=== PATIENT | male | born 1950 | race Hispanic/Latino ===

== ENCOUNTER 2016-10-07 07:57 | Inpatient (IN) | payer MEDICARE, OTHER ==
--- NOTE | 2016-10-01 11:27 | Anesthesia Consultation ---
Anesthesia Consult and Med Hx - Airway Anesthetic Teeth Evaluation: Poor ROM Head & Neck: Inadequate Mental/Hyoid Distance: Adequate Mallampati Class: Class III Intubation Access Assessment: Possibly Difficult (painful if head moved or tilted; mouth opening limited) - Pulmonary Exam CTA: Yes - Cardiac Exam Cardiac Exam: RRR - Pre-Operative Health Status ASA Pre-Surgery Classification: ASA3 Proposed Anesthetic Plan: Epidural, Spinal (Discussed spinal/epidural with adductor block; patient curently off plavix and aspirin for suregery) - Pulmonary Hx Smoking: No Hx Sleep Apnea: No (MENDY PRE SCREEN HIGH RISK) - Cardiovascular System Hx Hypertension: Yes (2001; high cholesterol; symtoms of TIA couldn't be substantiated - no defic) Hx Heart Attack/AMI: Yes (2006) Hx Percutaneous Transluminal Coronary Angioplasty (PTCA): Yes (2001x2; 2006x2) Hx Peripheral Vascular Disease: Yes (? PVD- JACK FEET) - Central Nervous System CVA: Yes (? CVA 2015 , NO DEFICIT) Hx Back Pain: Yes (NECK PAIN) - Gastrointestinal Hx Gastroesophageal Reflux Disease: Yes - Other Systems Hx Cancer: Yes (MYELOMA WITH CHEMO &RADIATION 2010)
--- NOTE | 2016-10-01 11:30 | Anesthesia Consultation ---
Anesthesia Consult and Med Hx Date of service: 10/01/16 - Airway Anesthetic Teeth Evaluation: Poor (patient teeth in very poor condition due to radiation treatments for melanoma.) ROM Head & Neck: Inadequate Mental/Hyoid Distance: Adequate Mallampati Class: Class II Intubation Access Assessment: Possibly Difficult (Painful if head rotated or moved from side to side, or tilted back) - Pulmonary Exam CTA: Yes - Cardiac Exam Cardiac Exam: RRR - Pre-Operative Health Status ASA Pre-Surgery Classification: ASA3 Proposed Anesthetic Plan: Epidural, Spinal (Discussed spinal/epidural with sedation and adductor block - currently off aspirin and plavix in preparation for surgery) - Pulmonary Hx Smoking: No Hx Sleep Apnea: No (MENDY PRE SCREEN HIGH RISK) - Cardiovascular System Hx Hypertension: Yes (2001) Hx Heart Attack/AMI: Yes (2006) Hx Percutaneous Transluminal Coronary Angioplasty (PTCA): Yes (stents done in 2001 and ) Hx Peripheral Vascular Disease: Yes (? PVD- JACK FEET) - Central Nervous System CVA: Yes (? CVA 2015 , NO DEFICIT) Hx Back Pain: Yes (NECK PAIN) - Other Systems Hx Cancer: Yes (MYELOMA WITH CHEMO &RADIATION 2010)
[~2016-10-07 07:57] MED LIST: ANCEF/STERILE WATER 2 GM/20 ML 2 GM/20 ML SYRINGE IV NR; LACTATED RINGERS 1,000 ML IV SCH; NACL 0.9% IR ONE; NEOSPORIN GU IR ONE; NEURONTIN PO NR; PEPCID IV NR; VERSED IV NR
--- NOTE | 2016-10-07 10:02 | Anesthesia Day of Surgery ---
Anesthesia Day of Surgery - Day of Surgery Patient Examined: Yes Patient H&P Reviewed: Yes Patient is NPO: Yes
[2016-10-07] MEDS ORDERED: DECADRON ONE (10:22)
[2016-10-07] MEDS ORDERED: MARCAINE 0.5% 30 ML INFILTRATI ONE (10:22)
[2016-10-07 10:32] LABS: Anion Gap 20 mmol/L; Blood Urea Nitrogen 10 mg/dL (9-20); Calcium 9.1 mg/dL (8.4-10.2); Carbon Dioxide 26 mmol/L (22-30); Chloride 88.6 mmol/L (98-107); Glucose 134 mg/dL (75-100); Potassium 4.9 mmol/L (3.6-5.0); Sodium 130 mmol/L (137-145)
[2016-10-07] MEDS: NACL 0.9% 1000 ML 1,000 ML IV SCH ×2 (10:32→11:36)
[2016-10-07 10:46] LABS: Basophils % (Auto) 1.2 % (0.0-1.8); Eosinophils % (Auto) 2.6 % (0.0-4.3); Hematocrit 35.7 % (35.5-45.6); Hemoglobin 11.8 gm/dl (11.8-15.2); Mean Corpuscular HGB Conc 33 % (32-34); Mean Corpuscular Hemoglobin 27 pg (28-32); Mean Corpuscular Volume 80 fl (84-94); Platelet Count 252 K/mm3 (140-440); Red Blood Count 4.44 M/mm3 (3.65-5.03); Red Cell Distribution Width 14.6 % (13.2-15.2); White Blood Count 6.2 K/mm3 (4.5-11.0)
[2016-10-07] MEDS ORDERED: ZOFRAN IV PRN ×2 (11:00→15:20)
[2016-10-07] MEDS ORDERED: DILAUDID IV PRN (11:00)
[2016-10-07] MEDS ORDERED: MARCAINE-EPI/PF 0.25%-1:200,000 INFILTRATI ONE (11:11)
[2016-10-07] MEDS ORDERED: TRANEXAMIC ACID 1,000 MG in NACL 0.9% 100 ML IV NR (12:00)
[2016-10-07] MEDS ORDERED: DIPRIVAN 10 MG/ML IV ONE ×5 (12:13→14:55)
[2016-10-07] MEDS ORDERED: XYLOCAINE MPF 2% ONE ×4 (13:03→13:37)
--- NOTE | 2016-10-07 13:21 | Post Anesthesia Evaluation ---
- Post Anesthesia Evaluation Patient Participated: Yes Airway Patent: Yes Stable Respiratory Function: Yes Nausea/Vomiting: No Temp > 96.8F: Yes Pain Manageable: Yes Adequeate Hydration: Yes Anesthesia Complications: No Block Receding Appropriately: Yes Patient on Ventilator: No
[2016-10-07] MEDS ORDERED: MARCAINE-EPI 0.5%-1:200,000 INFILTRATI ONE ×2 (13:26)
[2016-10-07] MEDS ORDERED: DULCOLAX PR PRN (15:20)
[2016-10-07] MEDS ORDERED: SODIUM CHLORIDE FLUSH SYRINGE 10 ML IV PRN (15:20)
[2016-10-07] MEDS ORDERED: AMBIEN PO PRN (15:20)
--- NOTE | 2016-10-07 15:55 | Post Anesthesia Evaluation ---
- Post Anesthesia Evaluation Patient Participated: Yes Airway Patent: Yes Stable Respiratory Function: Yes Nausea/Vomiting: No Temp > 96.8F: Yes Pain Manageable: Yes Adequeate Hydration: Yes Anesthesia Complications: No
[2016-10-07] MEDS ORDERED: D5NS 1,000 ML IV SCH (16:00)
[2016-10-07] MEDS ORDERED: ANCEF/NS 1 GM/50 ML 1 GM/50 ML BAG IV SCH (16:00)
[2016-10-07] MEDS: MORPHINE IV PRN (18:41)
--- NOTE | 2016-10-07 18:57 | Operative Report ---
PREOPERATIVE DIAGNOSIS: Right knee severe degenerative joint disease with marked contractures. POSTOPERATIVE DIAGNOSIS: Right knee severe degenerative joint disease with marked contractures. PROCEDURE PERFORMED: Right total knee replacement -- complex with utilizing Vital Access Triathlon system with size 6 noncemented femur, size 6 noncemented tibia, 9 mm polyethylene insert, 8-degree valgus cut with a 10 mm distal femoral resection. SURGEON: Hung Kahn M.D. ENTRY LEVEL ADMINISTRATIVE ASSISTANT: Alexy Mendez CSA ANESTHESIA: Spinal epidural. ESTIMATED BLOOD LOSS: Minimal. COMPLICATIONS: None. DESCRIPTION OF PROCEDURE: The patient underwent successful induction of anesthesia with and adductor block. Carefully, the lower extremity was meticulously prepped and draped in the usual fashion. Tourniquet inflated after exsanguination. Tranexamic acid and Ancef were pre-administered. Preoperatively, he had significant flexion contracture with marked loss of flexion as well. The standard midline incision utilizing median trivector arthrotomy. The patella was relatively well preserved. Large osteophytes resected. It was a very tight knee. Meticulous exposure was carried out so as the tibiofemoral joint. Osteophytes removed. Tricompartmentally, the tibia had marked posterior osteophytes as well rendering it posteriorly subluxed. Intramedullary corinne introduced in the femur with sequential suctioning and standard cuts made on the femur initially with 8 mm distal resection. The ACL with chronic instability, osteophytes were meticulously removed from the notch, which allowed for appropriate entry of translation of the tibia, intramedullary corinne was introduced in the tibia and standard cuts made on the tibial side as well. He had large posterior osteophytes in the femur and the tibia and these required meticulous dissection to remove. The gaps were balanced medial and laterally. He had good flexion gaps; however, in extension, it was felt to be slightly tight. Hence, an additional 2 mm resected distally. This allowed for excellent stability and full range of motion with the implants noted. The wounds were thoroughly irrigated and the implants placed. He had full range of motion is noted with excellent tracking with no-hands technique and stability. Arthrotomy was reapproximated with Ethibond sutures followed by 0 and 2-0 Vicryl for the subcutaneous tissue and Monocryl for the skin and an Ioban dressing applied. Tourniquet released prior to wound closure. No significant bleeding encountered. He was taken to recovery room in satisfactory condition having tolerated the procedure well. JOB# [id number] RAVINP/NTS
[2016-10-07] MEDS: PERCOCET 5/325 PO PRN (19:18)
[2016-10-07] MEDS ORDERED: REGLAN IV PRN (19:30)
[2016-10-07] MEDS: ANCEF/NS 1 GM/50 ML 1 GM/50 ML BAG IV SCH (20:41)
--- NOTE | 2016-10-08 01:15 | Admit Criteria Form ---
Admission Criteria Documentation: AMBULATORY SURGERY EXCEPTION CRITERIA Ambulatory Surgery Exception Criteria ( Place 'X' for any and all applicable criteria): Surgery or procedure performed on ambulatory basis may require inpatient stay for[A] ANY ONE of the following(1)(2)(3)(4)(5)(6)(7)(8)(9): [X] I. A preoperative situation, condition, or finding that warrants inpatient stay as indicated by ANY ONE of the following: [] a) Inpatient care needed because of severity of a disease or condition rather than the surgery (eg, severe cardiac or respiratory disease, severe infection) (15) (16 ) (17) (18) [] b) Emergent procedure (eg, angioplasty for acute ischemia)(19) [] c) Complex surgical approach or situation as indicated by ANY ONE of the following(3): [] i) Open approach needed instead of usual endoscopic, transcatheter, or other less invasive procedure [] ii) Difficult approach because of previous operation [] iii) Airway monitoring required after open neck procedures(20)(21) [] iv) Large mass requiring unusually extensive dissection [] v) Additional complicating feature requiring inpatient care (eg, drain management)(22(23): [X] d) Major surgery in a pt with high anesthetic risk as indicated by ANY ONE of the following (2)(3)(5)(7)(8): [X] i) ASA risk class III or higher (severe systemic disease impairing function) [D] [] ii) Advanced age (eg, older than 85 years)(14)(24) [] iii) Symptomatic heart failure(25) [] iv) Symptomatic asthma or COPD(8)(21) [] v) Morbid obesity with hemodynamic or respiratory problems(20)( 21)(26)(27) [] vi) Obstructive sleep apnea(20)(21) [] vii) Former premature infants who are younger than 60 weeks [] viii) High risk for severe postoperative abnormalities (eg, severe postoperative hypocalcemia after parathyroidectomy for severe hyperparathyroidism)(27)( 28) [] ix) Unstable angina(25) [] e) Drug-related risk requiring inpatient stay as indicated by ANY ONE of the following(5)(10)(14)(32)(33) [] i) Procedure requires discontinuing drugs or other therapy (eg , antiarrhythmic medication, antiseizure medication), which necessitates inpatient observation or treatment.(18)(31) [] ii) Major surgery and high risk drug use as indicated by ANY ONE of the following: [] 1) Active abuse of cocaine or similar drug [] 2) Monoamine oxidase inhibitor use [] 3) Other drug identified as posing risk [] f) Inadequate outpatient care situation as indicated by ANY ONE of the following(5)(10)(14)(32)(33) [] i) Patient lives remote from medical facility and procedure has urgent complication potential, and temporary nearby residence cannot be arranged [] ii) Patient will have postprocedure incapacitation and inadequate assistance at home, or alternative level of care cannot be arranged. [] iii) Patient will have long general anesthesia or procedure side effect resolution time, and competent person to stay with patient on first postoperative night at home or alternative level of care cannot be arranged. []iv) Other inadequate outpatient situation that cannot be handled by other means [] II. A perioperative event, condition, or finding that warrants inpatient stay as indicated by ANY ONE of the following (1)(2)(3): [] a) Inadequate physiologic recovery: cardiovascular, respiratory, or hemodynamic status not normal or near preoperative baseline(18) [] b) Hemodynamic instability [] c) Patient not alert with near normal or baseline mental status [] d) Temperature not normal or as expected and not appropriate for outpatient treatment of condition [] e) Ambulatory or appropriate activity level status not yet achieved post procedure [E](34)(35)(36) [] f) Operative site not appropriate (eg, unexpected or excessive drainage or bleeding) [] g) Postoperative effects not resolved or adequately managed (eg, significant pain or vomiting not appropriate for outpatient or next level of care)(10)(12) [] h) Complicating features requiring inpatient care as indicated by ANY ONE of the following(37): [] i) Severe complications of procedure (eg, bowel injury, airway compromise, vascular injury,severe hemorrhage) [] ii) Extensive (eg, dissection far beyond usual scope of procedure ) or prolonged (eg, 120 minutes beyond usual) surgery needed requiring inpatient postoperative care [] iii) Conversion to an open or complex procedure that requires inpatient care (eg, open vs laparoscopic cholecystectomy, abdominal vs vaginal hysterectomy)(38) [] iv) Comorbid condition or test result identified during or post procedure that requires inpatient care (7) [] v) Malignant hyperthermia(30) [] vi) Other complicating feature requiring inpatient care(22)(23) Inpatient stay may be needed until ALL of the following are present (1)(2)(3)(4) (5)(6)(10)(14)(33)(40): []a) Physiologic recovery: cardiovascular, respiratory, and hemodynamic status normal or near preoperative baseline []b) Hemodynamic stability []c) Patient alert, with near normal or baseline mental status []d) Temperature appropriate: patient afebrile or temperature appropriate for outpt treatment of condition []e) Activity level appropriate: ambulatory or appropriate activity level post procedure []f) Operative site appropriate as indicated by ALL of the following: []i) Site dry or with expected drainage []ii) Any blood noted is as expected for procedure. []g) Postoperative effects resolved or managed as indicated by ALL of the following: []i) Pain management appropriate for outpatient (or next level of) care(10) []ii) Minimal nausea and vomiting: if present, successfully treated with oral medication(12) []iii) Headache, dizziness, or drowsiness (if present) are mild. []h) Voiding status acceptable as indicated by ANY ONE of the following: []i) Voiding spontaneously []ii) No voiding but instructions given for follow-up in 6 to 8 hours []iii) Urinary catheter in place, and instructions given for follow-up []i) Complicating features requiring inpatient care manageable at a lower level of care(37) []j) Comorbid conditions manageable at a lower level of care(37) The original [employer] content created by [employer] has been revised. The portions of the content which have been revised are identified through the use of italic text or in bold, and [employer] [facility] [employer] has neither reviewed nor approved the modified material. All other unmodified content is copyright [employer]. Please see references footnoted in the original [employer] edition 2016 Admission Criteria Met: Yes
[2016-10-08] MEDS: MORPHINE IV PRN ×3 (03:00→13:34)
[2016-10-08] MEDS: ANCEF/NS 1 GM/50 ML 1 GM/50 ML BAG IV SCH (04:32)
[2016-10-08] MEDS: PERCOCET 5/325 PO PRN ×3 (05:04→15:34)
[2016-10-08] MEDS ORDERED: XARELTO PO SCH (10:00)
--- NOTE | 2016-10-08 12:45 | Consultation ---
History of Present Illness - Reason for Consult Consult date: 10/08/16 Medical Management Requesting physician: COLETTE COPELAND - History of Present Illness S/p TKA -doing well Past History Past Medical History: CAD, diabetes Medications and Allergies Allergies Allergy/AdvReac Type Severity Reaction Status Date / Time adhesive tape Allergy Rash Verified 09/28/16 12:59 amlodipine besylate Allergy HIGH HEART Verified 09/28/16 12:58 [From [facility]] RATE Home Medications Medication Instructions Recorded Confirmed Last Taken Type Aspirin [Adult Low Dose Aspirin EC] 81 mg PO DAILY 10/01/16 10/07/16 09/29/16 History Clopidogrel Bisulfate [Plavix] 75 mg PO DAILY 10/01/16 10/07/16 09/29/16 History Gabapentin [Neurontin] 600 mg PO BID 10/01/16 10/07/16 10/07/16 07:30 History Glimepiride [Amaryl] 1 mg PO QAM 10/01/16 10/07/16 10/06/16 History Hm Megakrill 500 mg Softgel 1,000 mg PO DAILY 10/01/16 10/07/16 10/06/16 History Lisinopril [Zestril] 5 mg PO QDAY 10/01/16 10/07/16 10/07/16 07:30 History Mag Carb/Al Hydrox/Alginic AC 1 dose PO PRN PRN 10/01/16 10/07/16 10/04/16 History [Gaviscon Liquid] Metformin HCl [Glucophage] 1,000 mg PO BID 10/01/16 10/07/16 10/06/16 History Metoprolol 50 mg PO BID 10/01/16 10/07/16 10/07/16 07:30 History Morphine ER 15 mg PO BID 10/01/16 10/07/16 10/06/16 History Nitroglycerin [Nitrostat] 0.4 mg SUBLINGUAL PRN PRN 10/01/16 10/01/16 Unknown History Omeprazole [Omeprazole] 40 mg PO DAILY 10/01/16 10/07/16 10/07/16 07:30 History Ondansetron [Zofran TAB] 8 mg PO Q8HR PRN 10/01/16 10/07/16 10/05/16 History Oxycodone HCl [Roxicodone TAB] 15 mg PO TID PRN 10/01/16 10/07/16 10/06/16 History Simvastatin [Zocor TAB] 40 mg PO QHS 10/01/16 10/07/16 10/06/16 History Tizanidine HCl [Zanaflex] 4 mg PO Q8HR 10/01/16 10/07/16 10/07/16 07:30 History clonazePAM [Klonopin] 0.5 mg PO BID 10/01/16 10/07/16 10/04/16 History Celecoxib [celeBREX] 200 mg PO BID 10/07/16 10/07/16 10/06/16 History Fexofenadine (Nf) 180 mg PO QDAY PRN 10/07/16 10/07/16 10/06/16 History Active Meds: Active Medications Bisacodyl (Dulcolax) 10 mg SD QDAY PRN PRN Reason: Constip unreliev by MOM/or NPO Celecoxib (Celebrex) 200 mg PO BID STEPHANY Last Admin: 10/07/16 22:24 Dose: 200 mg Sodium Chloride (Nacl 0.9% 1000 Ml) 1,000 mls @ 75 mls/hr IV DIRECT STEPHANY Last Admin: 10/07/16 11:36 Dose: 75 mls/hr Dextrose/Sodium Chloride (D5ns) 1,000 mls @ 125 mls/hr IV DIRECT STEPHANY Metoclopramide HCl (Reglan) 10 mg IV ONCE PRN PRN Reason: Nausea Last Admin: 10/07/16 19:30 Dose: 10 mg Morphine Sulfate (Morphine) 4 mg IV Q4H PRN PRN Reason: Pain , Severe (7-10) Last Admin: 10/08/16 07:45 Dose: 4 mg Ondansetron HCl (Zofran) 4 mg IV Q8H PRN PRN Reason: Nausea And Vomiting Oxycodone/Acetaminophen (Percocet 5/325) 2 tab PO Q4H PRN PRN Reason: Pain, Moderate (4-6) Last Admin: 10/08/16 09:20 Dose: 2 tab Rivaroxaban (Xarelto) 10 mg PO QDAY STEPHANY PRN Reason: Protocol Last Admin: 10/08/16 09:20 Dose: 10 mg Sodium Chloride (Sodium Chloride Flush Syringe 10 Ml) 10 ml IV PRN PRN PRN Reason: LINE FLUSH Zolpidem Tartrate (Ambien) 5 mg PO QHS PRN PRN Reason: Sleep Last Admin: 10/07/16 22:27 Dose: 5 mg Review of Systems All systems: negative Exam - Constitutional Vitals: Temp Pulse Resp BP Pulse Ox 98.7 F 65 14 135/71 98 10/08/16 07:00 10/08/16 07:00 10/08/16 10:00 10/08/16 07:00 10/08/16 07:00 General appearance: Present: no acute distress, well-nourished - EENT Eyes: Present: PERRL ENT: hearing intact, clear oral mucosa - Neck Neck: Present: supple, normal ROM - Respiratory Respiratory effort: normal Respiratory: bilateral: CTA - Cardiovascular Heart Sounds: Present: S1 & S2. Absent: rub, click - Extremities Extremities: pulses symmetrical, No edema Peripheral Pulses: within normal limits - Abdominal General gastrointestinal: Present: soft, non-tender, non-distended, normal bowel sounds Male genitourinary: Present: normal - Integumentary Integumentary: Present: clear, warm, dry - Musculoskeletal Musculoskeletal: gait normal, strength equal bilaterally - Psychiatric Psychiatric: appropriate mood/affect, intact judgment & insight - Neurologic Neurologic: CNII-XII intact, moves all extremities Results - Labs CBC & Chem 7: 10/07/16 09:55 10/07/16 09:09 Labs: Abnormal lab results 10/07/16 10/07/16 Range/Units 15:55 19:32 POC Glucose 152 H 183 H (70-105) Assessment and Plan - Patient Problems (1) T2DM (type 2 diabetes mellitus) Current Visit: Yes Status: Chronic Qualifiers: Diabetes mellitus complication status: without complication Diabetes mellitus complication detail: D Diabetic retinopathy severity: D Proliferative retinopathy type: P Diabetes mellitus macular edema: D Diabetes mellitus terminal operator insulin use: D Laterality: L Chronic kidney disease stage: C (2) CAD (coronary artery disease) Current Visit: Yes Status: Chronic Qualifiers: Coronary Disease-Associated Artery/Lesion type: [place] artery [place] vs. transplanted heart: [place] heart Associated angina: without angina Qualified Code(s): I25.10 - Atherosclerotic heart disease of [place] coronary artery without angina pectoris Plan to address problem: Cont Plavix (3) Acute hyponatremia Current Visit: Yes Status: Acute Plan to address problem: NS at 75 ml/hr (4) Hx of total knee arthroplasty Current Visit: Yes Status: Acute Qualifiers: Laterality: L (5) DVT prophylaxis Current Visit: Yes Status: Acute (6) Pain management Current Visit: Yes Status: Acute Plan to address problem: Adequate
[2016-10-08 17:22] VITALS: BP 154/77
--- NOTE | 2016-10-08 23:17 | Discharge Summary ---
DISCHARGE DIAGNOSIS: Status post right total knee replacement. HOSPITAL COURSE: The patient was admitted to the hospital, underwent surgery as noted. The operation was benign. He tolerated it very well. Postop, he was treated with appropriate physical therapy. He did very well with respect to this. He is discharged at this time in good condition. Thorough discussion was carried out regarding his postoperative care and instructions given. pain medications at home. Will follow up in the office on Wednesday. Wound care instructions were given as well. JOB# [id number] RDP/NTS
== END 2016-10-08 18:50 | disposition home health service (06) | DRG 470 ==
LOC: 4A 08:38 → 2B-SURG 20:32
PROVIDERS: ADMIT Orthopaedic Surgery; ATTEND Orthopaedic Surgery
PROC: 0SRC0JA Replacement of Right Knee Joint with Synthetic Substitute, Uncemented, Open Approach (ICD-10-PCS; principal; 2016-10-07)
DX: M17.11 Unilateral primary osteoarthritis, right knee (principal); E87.1 Hypo-osmolality and hyponatremia; I10 Essential (primary) hypertension; K21.9 Gastro-esophageal reflux disease without esophagitis; E11.51 Type 2 diabetes mellitus with diabetic peripheral angiopathy without gangrene; I25.10 Atherosclerotic heart disease of native coronary artery without angina pectoris; Z98.61 Coronary angioplasty status; I25.2 Old myocardial infarction; Z86.73 Personal history of transient ischemic attack (TIA), and cerebral infarction without residual deficits; Z88.8 Allergy status to other drugs, medicaments and biological substances; Z91.048 Other nonmedicinal substance allergy status
CPT/HCPCS: 36415; 62324; 64450; 80048; 82962; 85025; 88304; 88305; 88311; C1776; G8978-GP; G8979-GP; J0690; J1100; J2250; J2270; J2704; J2765; J7030